=== PATIENT | male | born 1940 | race Caucasian/White ===

== ENCOUNTER 2022-05-26 18:12 | Observation (INO) | payer MEDICARE ==
[~2022-05-26] VITALS: Ht 172.7 cm; Wt 75.0 kg
[~2022-05-26 18:12] MED LIST: ASPIRIN EC81 MG PO; ATENOLOL-CHLOR1 EAC1 PO; COMBIVENT RESPIM4 GM INH; DOXYCYCLINE HY100 MG PO; GLIPIZIDE ER2.5 MG PO; GLIPIZIDE5 MG PO; IPRAT-ALBUT 0.5-3 ML INH; JANUMET 50-1,01 EACH PO; LANTUS SOL100 UNIT/1 SUB-Q; LISINOPRIL20 MG PO; METFORMIN HCL1000 MG PO; PRAVASTATIN SOD20 MG PO; PREDNISONE20 MG PO; PRIMATENE MIS11.7 GM INH; SPIRIVA18 MCG INH; TAMSULOSIN HCL0.4 MG PO
--- NOTE | 2022-05-26 21:15 | NUR ---
PT BROUGHT TO ROOM VIA STRETCHER BY FRANCESCA SANDERS. BEDSIDE REPORT RECEIVED FROM FRANCESCA SANDERS. PT AMBULATES FROM STRETCHER TO RESTROOM AND THEN TO BED WITH STEADY GAIT. PT BACK IN BED AND 2L O2 NC PLACED. PTs O2 SATS AT 84% ON 2L NC. INCREASED O2 SATS TO 4L NC. PTs O2 SATS INCREASE TO 94% AND MAINTAIN. TITRATED PT BACK DOWN TO 2L NC AND PTs O2 SATS CONTINUE TO MAINTAIN AT 94%. VITALS AND WEIGHT COMPLETE. TELE PLACED. 2142 ASSESSMENT COMPLETE. PT DENIES PAIN AT THIS TIME. LUNG SOUNDS EXPIRATROY WHEEZE THROUGHOUT ALL LOBES. DIMINISHED IN RLL AND LLL. BOWEL TONES ACTIVE. IV FLUSHES WNL. DAUGHTER IN ROOM. PT DENIES ANY NEEDS AT THIS TIME. CALL LIGHT IN REACH. PT EDUCATED SET ILLUSTRATOR LIGHT USE. PT VERBALIZES UNDERSTANDING. URINAL PROVIDED. EDUCATED PT ON SAFETY AND TO CALL IF PT NEEDS TO GET UP TO USE RESTROOM. PT VERBALIZES UNDERSTANDING. FRANCESCA SANTOYO IN ROOM.
[2022-05-26 21:22] VITALS: BP 131/86
--- NOTE | 2022-05-26 22:10 | NUR ---
IN TO ADMINISTER MEDICATION, SEE MAR. PT TOLERATES SUB-Q INJECTION WELL. RAN RN IN ROOM. IV ABX NOT YET IN PIXYS. BED ALARM ON. PT DENIES ANY OTHER NEEDS AT THIS TIME. CALL LIGHT IN REACH. PT VERBALIZES UNDERSTANDING CALL LIGHT USE AND USES TEACH BACK.
--- NOTE | 2022-05-26 22:49 | NUR ---
IN TO START IV ABX, SEE MAR. IV ABX STARTED. PT DENIES TOILETING NEEDS AT THIS TIME. URINAL PLACED AT BEDSIDE. PT DENIES ANY OTHER NEEDS AT THIS TIME. CALL LIGHT IN REACH. BED ALARM ON.
--- NOTE | 2022-05-26 23:50 | NUR ---
PT CALLED, THEN THE BED ALARM WENT OFF. PT NEEDED TO USE URINAL. STOOD AT BEDSIDE, USED URINAL THEN BACK TO BED. BED ALARM PLACED.
--- NOTE | 2022-05-26 23:57 | NUR ---
IN TO ANSWER CALL LIGHT. IV ABX COMPLETE. PT SL AT THIS TIME. PT DENIES TOILETING NEEDS AT THIS TIME. PT DENIES ANY OTHER NEEDS AT THIS TIME. CALL LIGHT IN REACH. BED ALARM ON.
--- NOTE | 2022-05-27 00:28 | NUR ---
IN TO ANSWER BED ALARM. PT SITTING ON EDGE OF BED ATTEMPTING TO USE URINAL. VOID NOTED. PT LAYS BACK IN BED. PT DENIES NEEDS AT THIS TIME. CALL LIGHT IN REACH. EDUCATED PT TO USE CALL LIGHT IF PT NEEDS TO GET UP. PT VERBALIZES UNERSTANDING. BED ALARM ON.
--- NOTE | 2022-05-27 01:15 | NUR ---
IN TO ROUND ON PT. NC OFF PT. PT RESTING IN BED WITH EYES CLOSED RR EVEN AND UNLABORED. PT AWAKENS AND RESPONDS WHEN ADDRESSED. NC PLACED BACK ON PT. O2 SATS 89% ON RA. ONCE NC PLACED ON PT O2 SATS INCREASE TO 90% ON 2L NC. PT DENIES ANY NEEDS AT THIS TIME. CALL LIGHT IN REACH. BED ALARM ON.
[2022-05-27 01:57] VITALS: BP 128/68
--- NOTE | 2022-05-27 02:03 | NUR ---
IN TO ROUND ON PT. PT RESTING IN BED WITH EYES CLOSED. RR EVEN AND UNLABORED. VITALS AND I&Os COMPLETE. ASSESSMENT COMPLETE. LUNG SOUNDS EXPIRATORY WHEEZE THROUGHOUT ALL LOBES. COARS IN RLL AND LLL. RHONCHI IN RUL. BOWEL TONES ACTIVE. PT DENIES PAIN AT THIS TIME. PT DENIES TOILETING NEEDS AT THIS TIME. PT DENIES ANY OTHER NEEDS AT THIS TIME. CALL LIGHT IN REACH. BED ALARM ON.
--- NOTE | 2022-05-27 03:35 | NUR ---
IN TO ROUND ON PT. PT AWAKE IN BED. NC NOTED TO BE OFF PT. O2 SATS 89% ON RA. PLACED 2L NC ON PT AND O2 SATS INCREASE AND MAINTAIN AT 91%. URINAL EMPTIED. PT REQUESTING ATTENDS. PTs PANTS NOTED TO BED SOILED WITH URINE. ATTENDS PROVIDED. PT REQUESTING WATER, WATER PROVIDED. PT DENIES ANY OTHER NEEDS AT THIS TIME. CALL LIGHT IN REACH. BED ALARM ON.
[2022-05-27 04:57] VITALS: BP 122/68
--- NOTE | 2022-05-27 05:00 | NUR ---
IN BED ALARM ALARMING. PT SITTING ON EDGE OF BED USING URINAL. URINAL EMPTIED. VITALS AND I&Os COMPLETE. PT DENIES PAIN AT THIS TIME. PT DENIES FEELING SOB. PT DENIES ANY OTHER NEEDS AT THIS TIME. CALL LIGHT IN REACH. BED ALARM ON.
--- NOTE | 2022-05-27 07:25 | EKG ---
[facility] [address] [place] [address] Signed Sinus rhythm with occasional premature ventricular complexes Otherwise normal ECG When compared with ECG of 04-JAN-2022 09:38, premature ventricular complexes are now present Confirmed by KENYETTA LO MD ([id number]) on 05/27/2022 7:25:00 AM Electronically Signed By: KENYETTA LO MD 05/27/22 0725 PATIENT NAME: JULES MILLS PAIGE Electrocardiogram DATE OF : 44 PHYSICIAN: KENYETTA LO MD REPORT #: [id number] REPORT IS CONFIDENTIAL AND NOT TO BE RELEASED WITHOUT AUTHORIZATION
--- NOTE | 2022-05-27 08:25 | NUR ---
PT ASSESSMENT AND MEDICATION ADMINISTRATION COMPLETED. PT IS A/O, RESPIRATIONS EVEN AND REGULAR. WHEEZES THROUGHOUT. CALL LIGHT WITHIN REACH.
[2022-05-27 09:52] VITALS: BP 115/60
--- NOTE | 2022-05-27 11:16 | NUR ---
ROUNDED ON PT. PT APPEARS TO BE SLEEPING COMFORTABLY. RESPIRATIONS EVEN AND REGULAR. 2L NC IN PLACE. CALL LIGHT WITHIN REACH.
--- NOTE | 2022-05-27 11:46 | NUR ---
Visited with Kentrell. He lives with his daughter and grandchild, and she lives upstairs. Pt states there is 14 steps for meals and ice water, and claims that he becomes SOB with the stairs. Daughter provides groceries and cooking. Kentrell pays the bills. He is retired from [employer], and had a pension and SS, and states he has no financial issues. He has a nebulizer but does not use it regularly. Pt may need o2 on discharge, and has used [facility] in the past. He believes Dr. Camargo has started with process in getting O2 ordered for him. Called [facility] and O2 has been ordered but will need orders and O2 qualifier on discharge.
--- NOTE | 2022-05-27 12:08 | NUR ---
TO PT ROOM FOR MEDICATION ADMINISTRATION. PT IS A/O, RESPIRATIONS EVEN AND REGULAR. REMAINS ON 2L NC. CALL LIGHT WITHIN REACH.
[2022-05-27] MEDS ORDERED: PREDNISONE10 MG PO (13:10)
[2022-05-27] MEDS ORDERED: AZITHROMYCIN250 MG PO (13:12)
[2022-05-27 13:26] VITALS: BP 118/59
[2022-05-27] MEDS ORDERED: ZINC50 MG PO (14:52)
[2022-05-27] MEDS ORDERED: VITAMIN D325 MCG PO (14:56)
--- NOTE | 2022-05-27 14:57 | NUR ---
MED REC COMPLETE
--- NOTE | 2022-05-27 15:35 | NUR ---
PT ASSESSMENT COMPLETED. PT IS A/O, REMAINS ON 2L NC. SPO2 95%. PT IS USING IS. CALL LIGHT WITHIN REACH.
--- NOTE | 2022-05-27 16:57 | NUR ---
MEDICATION ADMINISTRATION COMPLETED. ASSISTED PT TO STAND AT BEDSIDE TO USE URINAL. PT REMAINS ON 2 L NC. CALL LIGHT WITHIN REACH.
[2022-05-27 17:58] VITALS: BP 1120/56; BP 120/56
--- NOTE | 2022-05-27 18:08 | NUR ---
VS AND I/O COMPLETED. ASSISTED PT BACK TO BED FROM CHAIR. FAMILY AT BEDSIDE. CALL LIGHT WITHIN REACH.
--- NOTE | 2022-05-27 19:05 | NUR ---
REPORT RECEIVED FROM FRANCESCA MARIN. PT LAYING IN BED WATCHING TV. PT DENIES ANY NEEDS AT THIS TIME. CALL LIGHT IN REACH. BED ALARM ON.
--- NOTE | 2022-05-27 19:57 | NUR ---
IN TO ANSWER CALL LIGHT. PT REQUESTING TO STAND TO USE URINAL. PT STANDS AT BEDSIDE AND VOIDS IN URINAL. URINAL EMPTIED. PT DENIES ANY OTHER NEEDS AT THIS TIME. CALL LIGHT IN REACH.
[2022-05-27 20:44] VITALS: BP 134/64
--- NOTE | 2022-05-27 20:54 | NUR ---
IN TO ADMINISTER MEDICATION, SEE MAR. PT TAKES PO MEDICATION WITH NO ISSUES. VITALS AND I&Os COMPLETE. WATER PROVIDED. ASSESSMENT COMPLETE. PT DENIES ANY PAIN AT THIS TIME. LUNG SOUNDS EXPIRATORY WHEEZE THROUGHOUT ALL LOBES. COARSE IN RLL AND LLL. BOWEL TONES ACTIVE. PT DENIES NUMBNESS OR TINGLING IN HANDS AND FEET. PT DENIES ANY OTHER NEEDS AT THIS TIME. CALL LIGHT IN REACH. IV ABX INFUSING WNL.
--- NOTE | 2022-05-27 21:51 | NUR ---
IN TO ROUND ON PT. PT REQUESTING PRN MELATONIN. PT ALSO REQUESTING TOILETING. PT STANDS AT BEDSIDE AND USES URINAL TO VOID. VOID NOTED. PRN MELATONIN ADMINISTERED, SEE MAR. PT TAKES PO MEDICATION WITH NO ISSUES. IV ABX INFUSING WNL. PT LAYING IN BED WATCHING TV. RR EVEN AND UNLABORED. PT DENIES ANY OTHER NEEDS AT THIS TIME. CALL LIGHT IN REACH.
--- NOTE | 2022-05-27 23:12 | NUR ---
IN TO ROUND ON PT. PT LAYING IN BED WATCHING TV. PT STATES "WHILE YOU ARE HERE I MIGHT WELL GET UP AND GO TO THE BATHROOM." PT AMBULATES TO RESTROOM WITH STEADY GAIT AND BACK TO BED. PT REQUESTING ICE CREAM. SUGAR FREE ICE CREAM PROVIDED. PT DENIES ANY OTHER NEEDS AT THIS TIME. CALL LIGHT IN REACH.
--- NOTE | 2022-05-28 00:05 | NUR ---
IN TO ROUND ON PT. PT RESTING IN BED WITH EYES CLOSED. RR EVEN AND UNLABORED. NO NEEDS IDENTIFIED AT THIS TIME. CALL LIGHT IN REACH.
--- NOTE | 2022-05-28 02:04 | NUR ---
SPOT CHECK PTs O2 SATS. O2 SATS AT 91% ON 2L NC WHILE PT RESTING IN BED WITH EYES CLOSED. RR EVEN AND UNLABORED.
[2022-05-28 05:09] VITALS: BP 139/68
--- NOTE | 2022-05-28 05:12 | NUR ---
IN TO ROUND ON PT. PT RESTING IN BED WITH EYES CLOSED. RR EVEN AND UNLABORED. PT AWAKENS AND RESPONDS WHEN ADDRESSED. VITALS AND I&Os COMPLETE. ASSESSMENT COMPLETE. LUNG SOUNDS COARSE AND EXPIRATORY WHEEZING THROUGHOUT. BOWEL TONES ACTIVE. PT DENIES PAIN AT THIS TIME. PT REQUESTING TOILETING. PT AMBULATES TO RESTROOM FROM BED WITH STEADY GAIT AND BACK TO BED. WATER PROVIDED. PT DENIES ANY OTHER NEEDS AT THIS TIME. CALL LIGHT IN REACH.
--- NOTE | 2022-05-28 07:49 | NUR ---
RECIEVED SHIFT REPORT. PT RESTING IN BED, EYES CLOSED, BREATHING EVEN AND UNLABORED. CALL LIGHT IN REACH.
--- NOTE | 2022-05-28 09:01 | NUR ---
RN IN ROOM TO ADMINISTER INSULIN FOR PRIMARY RN - RT IN ROOM PERFORMING HOME 02 TRIAL.
--- NOTE | 2022-05-28 09:29 | NUR ---
Spoke with pt and he plans on dc to home today. Unclear when he will have a ride. Will call [facility] and confirm time they will deliver 02 to pts. home. Per pt, no one will be home.
--- NOTE | 2022-05-28 09:30 | NUR ---
Faxed face sheet, H&P, progress notes, RX for 02. Called and spoke with Sheree and updated they have had this pt in the past. She was able to look up info. She will call back with a time for 02 delivery.
[2022-05-28 09:34] VITALS: BP 109/63
--- NOTE | 2022-05-28 09:51 | NUR ---
MORNING ASSESSMENT COMPLETE. DENIES PAIN. INSP./EXP WHEEZE IN RUL & LLL, EXP WHEEZE IN [place] & LLL, COURSE IN ALL LOBES. COUGH PRESENT WITH THICK SMALL AMOUNTS OF YELLOW SPUTUM. IN RECLINER, DENIES FURTHER NEEDS. CALL LIGHT IN REACH
--- NOTE | 2022-05-28 10:02 | NUR ---
Pt was discussed in 9:30 meeting. Will dc today. Called [facility] and they can deliver 02 between 3 and 4 pm. Let them know we will send the pt home with a large tank around 1 pm. Returned and updated Kentrell. He will call and schedule a ride for around 1 pm. Nurse updated.
--- NOTE | 2022-05-28 10:11 | NUR ---
Notified by CM, pt's daughter will be home in the afternoon to accept 02 and his ride will be here at 2 pm.
--- NOTE | 2022-05-28 12:21 | NUR ---
PT SITTING ON SIDE OF BED EATING. DENIES PAIN OR ANY COMPLAINTS AT THIS TIME. CALL LIGHT IN REACH
== END 2022-05-28 13:50 | disposition home or self-care (01) ==
LOC: ED 18:12 → MS 18:14
PROVIDERS: ADMIT Internal Medicine; ATTEND Internal Medicine
DX: J44.1 Chronic obstructive pulmonary disease with (acute) exacerbation (principal); J96.01 Acute respiratory failure with hypoxia; E11.9 Type 2 diabetes mellitus without complications; I10 Essential (primary) hypertension; Z99.81 Dependence on supplemental oxygen; Z87.891 Personal history of nicotine dependence; Z20.822 Contact with and (suspected) exposure to COVID-19
CPT/HCPCS: 36415; 71045; 80048; 80053; 83735; 83880; 84484; 85025; 87502; 93005; 93010; 94640; 94667; 94668; 94760; 94761; 96365; 96372; A9270; C9803; G0378; J0456; J1650; J1815; J2930; J7060; J7512; U0003

== ENCOUNTER 2023-06-09 22:08 | Inpatient (IN) | payer MEDICARE ==
[~2023-06-09] VITALS: Ht 172.7 cm; Wt 78.8 kg
[~2023-06-09 22:08] MED LIST changes: +AZITHROMYCIN250 MG PO; +PREDNISONE10 MG PO; +VITAMIN D325 MCG PO; +ZINC50 MG PO
[2023-06-09] MEDS ORDERED: ALBUTEROL/IPRATROPIUM 3 ML NEB INH PRN (22:15)
[2023-06-09 22:25] LABS: BASOPHILS 0.4 % (0-2); EOSINOPHILS 1.2 % (0-6); HEMATOCRIT 44.9 % (35.0-50.0); HEMOGLOBIN 14.8 g/dL (12.0-18.0); LYMPHOCYTES 7.4 % (24-44); MCHC 32.9 g/dl (30-36); MCV 91.3 fl (81-99); MONOCYTES 3.8 % (0-12); NEUTROPHILS 87.2 % (39-80); PLATELET COUNT 213 K/uL (140-440); RBC 4.92 M/ul (4.3-5.7); RDW 15.2 (10.5-15.0)
[2023-06-09] MEDS ORDERED: CEFTRIAXONE/SODIUM CHLORIDE 2 GM/100 ML PIGGYBACK IV ONE (22:45)
[2023-06-09] MEDS ORDERED: ALBUTEROL/IPRATROPIUM 3 ML NEB INH ONE ×2 (22:45→23:45)
[2023-06-09] MEDS ORDERED: SODIUM CHLORIDE 0.9% 1,000 ML IV PRN (22:45)
[2023-06-09] MEDS ORDERED: methylPREDNISolone SOD SUCC 125 MG/2 ML VIAL IV ONE (22:45)
[2023-06-09 22:53] LABS: ALBUMIN 3.8 g/dL (3.4-5.0); ALBUMIN/GLOBULIN RATIO 0.97 (1.1-2.4); ANION GAP 15.1 (7-21); BILIRUBIN, TOTAL 0.6 ng/dL (0.2-1.0); BUN/CREATININE RATIO 20.96 (6.0-28.6); CALCIUM 8.6 mg/dL (8.5-10.1); CREATININE, SERUM 1.24 mg/dL (0.70-1.30); POTASSIUM 4.1 mmol/L (3.5-5.1); PROTEIN, TOTAL 7.7 g/dL (6.4-8.2)
[2023-06-09 23:23] LABS: LACTIC ACID, BLOOD 1.4 mmol/L (0.4-2.0)
[2023-06-09 23:39] LABS: BILIRUBIN, URINE NEGATIVE (negative); BLOOD/HGB, URINE SMALL (Negative); KETONE, URINE TRACE (Negative); LEUK ESTERASE, URINE NEGATIVE (negative); NITRITE, URINE NEGATIVE (negative); PH, URINE 6.5 (5-7)
[2023-06-09 23:44] LABS: EPITHELIAL CELLS, URINE SQUAMOUS 1+ /lpf (0-1+)
[2023-06-09 23:45] LABS: BACTERIA, URINE RARE /hpf (negative); CASTS, URINE HYALINE 1+ \\lpf; CRYSTALS, URINE NONE SEEN (0-1+); REFLEX CULTURE, URINE No (No)
[2023-06-09] MEDS ORDERED: ondansetron HCL 4 MG/2 ML VIAL IV ONE (23:45)
[2023-06-09] MEDS ORDERED: ALBUTEROL SULFATE 0.5% 2.5 MG/0.5 ML VIAL INH ONE (23:45)
[2023-06-09] MEDS ORDERED: MORPHINE SULFATE 4 MG/ML VIAL IV ONE (23:45)
[2023-06-10] VITALS (17 sets, daily range): BP systolic 93–154; BP diastolic 56–89
[2023-06-10] MEDS ORDERED: MAGNESIUM SULFATE 50 ML IV ONE (00:22)
[2023-06-10 00:24] LABS: INFLUENZA B NAA NEGATIVE (NEGATIVE); RESPIRATORY SYNCYTIAL VIR NAA NEGATIVE (NEGATIVE)
[2023-06-10 00:27] LABS: BASE EXCESS, BLOOD GAS -1.2 mmol/L (-2-2); HCO3, BLOOD GAS 30.4 mmol/L (22-26); O2 SATURATION, BLOOD GAS 94.9 % (95.0-100.0); OXYGEN RECEIVED, BLOOD GAS 60%; PCO2, BLOOD GAS 86.9 mmHg (35-45); PH, BLOOD GAS 7.15 (7.35-7.45); PO2, BLOOD GAS 89 mmHg (80-100); TOTAL CO2, BLOOD GAS 33.1
[2023-06-10] MEDS ORDERED: MAGNESIUM SULFATE 2 GM/50 ML BAG IV ONE (00:30)
[2023-06-10] MEDS ORDERED: LACTATED RINGER'S 1,000 ML IV ONE (01:00)
[2023-06-10 01:41] LABS: BASE EXCESS, BLOOD GAS 0.5 mmol/L (-2-2); HCO3, BLOOD GAS 30.1 mmol/L (22-26); O2 SATURATION, BLOOD GAS 95.1 % (95.0-100.0); OXYGEN RECEIVED, BLOOD GAS 45%; PCO2, BLOOD GAS 72.2 mmHg (35-45); PH, BLOOD GAS 7.23 (7.35-7.45); PO2, BLOOD GAS 82 mmHg (80-100); TOTAL CO2, BLOOD GAS 32.3
[2023-06-10] MEDS ORDERED: LACTATED RINGER'S 1,000 ML IV SCH (02:00)
[2023-06-10] MEDS ORDERED: ondansetron HCL 4 MG/2 ML VIAL IV PRN ×2 (02:00→07:00)
[2023-06-10] MEDS ORDERED: methylPREDNISolone SOD SUCC 125 MG/2 ML VIAL IV SCH (02:00)
[2023-06-10] MEDS ORDERED: ALBUTEROL/IPRATROPIUM 3 ML NEB INH PRN (02:00)
[2023-06-10] MEDS ORDERED: MORPHINE SULFATE 4 MG/ML VIAL IV PRN (02:15)
--- NOTE | 2023-06-10 03:31 | NUR ---
PATIENT ARRIVED TO THE UNIT VIA STRETCHER. ABLE TO ASSIST WITH TRANSFER TO BED WITH SOME ASSIST. PATIENT REMIANS ON BIPAP; 03/10 WITH 45% Fi02. RR 22-24. PATIENT IS DROWSY, RECENTLY RECEIVED PRN MORPHINE FOR SOB. PATIENT LUNG SOUNDS ARE DIMINISHED AND EXP WHEEZE THROUGHOUT. HR 100, SINUS TACH. ADEQUATE BP AND ORAL TEMP WNL. SEE VS. IV SITES WNL X2. FLUID BOLUS FINISHED. SKIN GROSSLY INTACT. ABD DRAW SITES COVERED WITH BANDAIDS. FAMILY AT BEDSIDE TO PROVIDE SOME HISTORY AND THEN HAVE GONE HOME FOR THE MORNING. PATIENT RESTING IN BED, TOLERATING BIPAP. CALL LIGHT IN HAND. BED ALARM ACTIVE.
--- NOTE | 2023-06-10 04:03 | NUR ---
ASSISTED PATIENT TO USE URNAL IN BED. PATIENT FOLLOWS DIRECTIONS EASILY. ABLE TO VOID WITH ASSISTANCE. PATIENT DENIED OTHER NEEDS. TOLERATING BIPAP WELL. VS STABLE.
--- NOTE | 2023-06-10 06:15 | NUR ---
PATIENT RESTLESS IN BED. ASSISTED TO USE URNAL. PATIENT CONTINUES TO BE RESTLESS. ASSISTED TO SIT AT EDGE OF BED. PATIENT REPORTS FEELING SOB AND ANXIETY WITH BIPAP. PRN MORPHINE PROVIDED. RT CALLED FOR NEB. POST NEB PATIENT RETURNED TO BED. TOLERATING BIPAP AT THIS TIME. CALL LIGHT IN REACH. BED ALARM ACTIVE.
[2023-06-10] MEDS ORDERED: ACETAMINOPHEN 500 MG TAB PO PRN (07:00)
[2023-06-10] MEDS ORDERED: BENZONATATE 100 MG CAP PO PRN (07:00)
[2023-06-10] MEDS ORDERED: MAGNESIUM HYDROXIDE 30 ML UDC PO PRN (07:00)
[2023-06-10 07:14] LABS: BASOPHILS 0.2 % (0-2); HEMOGLOBIN 13.1 g/dL (12.0-18.0); LYMPHOCYTES 2.9 % (24-44); MCH 30.1 (27-36); MCHC 32.8 g/dl (30-36); MCV 91.8 fl (81-99); NEUTROPHILS 95.9 % (39-80); PLATELET COUNT 176 K/uL (140-440); RBC 4.36 M/ul (4.3-5.7)
[2023-06-10 07:23] LABS: ANION GAP 11.6 (7-21); BUN/CREATININE RATIO 23.07 (6.0-28.6); CREATININE, SERUM 1.04 mg/dL (0.70-1.30); POTASSIUM 4.6 mmol/L (3.5-5.1)
[2023-06-10 07:37] LABS: BASE EXCESS, BLOOD GAS 1.1 mmol/L (-2-2); HCO3, BLOOD GAS 29.4 mmol/L (22-26); O2 SATURATION, BLOOD GAS 99.5 % (95.0-100.0); PCO2, BLOOD GAS 62.5 mmHg (35-45); PH, BLOOD GAS 7.28 (7.35-7.45); PO2, BLOOD GAS 119 mmHg (80-100); TOTAL CO2, BLOOD GAS 31.3
[2023-06-10] MEDS ORDERED: ALBUTEROL/IPRATROPIUM 3 ML NEB INH SCH (08:00)
--- NOTE | 2023-06-10 08:15 | NUR ---
PT BED ALARM OFF - UP TO VOID WITH RN, SOB WITH EXERTION - 150 ML AND INC ON FLOOR - REMOVED BIPAP - 8LNC FOR MEAL AT SIDE OF BED - ACCUCHECK 271 [place] NOTIFIED. BED ALARM ON.
[2023-06-10] MEDS ORDERED: DEXTROSE 50% 50 ML SYR IV PRN ×4 (08:45→18:00)
[2023-06-10] MEDS ORDERED: DEXTROSE 5% 1,000 ML IV PRN ×2 (08:45→18:00)
[2023-06-10] MEDS ORDERED: GLUCAGON,HUMAN RECOMBINANT 1 MG/ML VIAL SUB-Q PRN ×2 (08:45→18:00)
[2023-06-10] MEDS ORDERED: IBLOOD GLUCOSE TEST STRIP 1 EA TEST XX PRN ×2 (08:45→18:00)
[2023-06-10] MEDS ORDERED: PANTOPRAZOLE SODIUM 40 MG TABEC PO SCH (09:00)
[2023-06-10] MEDS ORDERED: ENOXAPARIN SODIUM 40 MG/0.4 ML SYR SUB-Q SCH (09:00)
--- NOTE | 2023-06-10 09:09 | NUR ---
In room, pt req sip of water. water provided. pt swallowed complete. BIPAP on pt. PT resting in bed. call light within reach
--- NOTE | 2023-06-10 09:31 | NUR ---
PATIENT JULES IS NOTED TO BE ALERT TO SELF, FOUND TRYING TO GET OOB, BED ALARM ON. BIPAP IN USE 20/8 RR 20 FOI2 45%. INSPIRATORY/ EXPIRATORY WHEEZES APPRECIATED, LR GTT AT 125
[2023-06-10] MEDS ORDERED: TRELEGY ELLIPT1 EACH INH (09:58)
--- NOTE | 2023-06-10 09:58 | NUR ---
Patient resting with eyes closed and currently on BiPAP. Allowed to rest at this time. Will return to complete assessment at a later time.
--- NOTE | 2023-06-10 10:00 | NUR ---
Pt provided sips of water. Pt BIPAP back on. No needs, call light within reach.
[2023-06-10] MEDS ORDERED: VENTOLIN HFA18 GM INH (10:02)
--- NOTE | 2023-06-10 11:09 | NUR ---
VISITED DURING SPIRITUAL CARE ROUNDS. PT EXPRESSED FRUSTRATION WITH SITUATION AND UNDERSTANDING OF NECESSITY. I ENCOURAGED FOCUS ON PRESENT; PROVIDED SUPPORTIVE PRESENCE; OFFERED HOSPITALITY; PROVIDED PRAYER. PT EXPRESSED APPRECIATION, ACCEPTANCE.
[2023-06-10] MEDS ORDERED: IBLOOD GLUCOSE TEST STRIP 1 EA TEST VI SCH ×2 (12:00→18:00)
[2023-06-10] MEDS ORDERED: PHARMACY RENAL DOSE ADJUSTMENT 1 DOSE MISC PO SCH (12:00)
[2023-06-10 12:02] LABS: BASE EXCESS, BLOOD GAS 2.4 mmol/L (-2-2); HCO3, BLOOD GAS 30.1 mmol/L (22-26); O2 SATURATION, BLOOD GAS 98.7 % (95.0-100.0); PCO2, BLOOD GAS 58.6 mmHg (35-45); PH, BLOOD GAS 7.32 (7.35-7.45); PO2, BLOOD GAS 130 mmHg (80-100); TOTAL CO2, BLOOD GAS 31.9
--- NOTE | 2023-06-10 12:12 | NUR ---
Pt sat up to eat lunch. Pt on NC now per RN. Pt provided ensure. Pt assisted w void in urinal. Pat has no further needs. call light within reach
[2023-06-10] MEDS ORDERED: ASPIRIN 81 MG TABEC PO SCH (13:17)
[2023-06-10] MEDS ORDERED: lisinopriL 20 MG TAB PO SCH (13:20)
[2023-06-10] MEDS ORDERED: TAMSULOSIN HCL 0.4 MG CAP PO SCH (13:21)
[2023-06-10] MEDS ORDERED: CHLORTHALIDONE 25 MG TAB PO SCH (13:30)
[2023-06-10] MEDS ORDERED: BUDESONIDE 0.5 MG/2 ML VIAL INH SCH (13:30)
[2023-06-10] MEDS ORDERED: atenoloL 50 MG TAB PO SCH (13:30)
[2023-06-10] MEDS ORDERED: DOXYCYCLINE HYCLATE 100 MG in DEXTROSE 5% 100 ML IV SCH (13:35)
[2023-06-10] MEDS ORDERED: CEFTRIAXONE/SODIUM CHLORIDE 1 GM/100 ML PIGGYBACK IV SCH (13:45)
[2023-06-10] MEDS ORDERED: DOXYCYCLINE HYCLATE IV SCH (14:00)
[2023-06-10] MEDS ORDERED: methylPREDNISolone SOD SUCC 40 MG/ML VIAL IV SCH (14:00)
[2023-06-10] MEDS ORDERED: DEXTROSE 5% IV SCH (14:00)
--- NOTE | 2023-06-10 14:20 | NUR ---
MED REC COMPLETE
[2023-06-10] MEDS ORDERED: ALBUTEROL SULFATE 0.083% 3 ML VIAL ONE (14:50)
[2023-06-10] MEDS ORDERED: LORazepam 2 MG/ML VIAL IV ONE (15:15)
[2023-06-10 15:17] LABS: BASE EXCESS, BLOOD GAS 3.3 mmol/L (-2-2); HCO3, BLOOD GAS 30.4 mmol/L (22-26); O2 SATURATION, BLOOD GAS 98.6 % (95.0-100.0); PCO2, BLOOD GAS 54.7 mmHg (35-45); PH, BLOOD GAS 7.35 (7.35-7.45); PO2, BLOOD GAS 91 mmHg (80-100); TOTAL CO2, BLOOD GAS 32.1
[2023-06-10] MEDS ORDERED: LORazepam 1 MG TAB PO PRN (15:30)
--- NOTE | 2023-06-10 15:37 | EKG ---
[facility] [address] [place] [address] Signed Wide QRS rhythm Left ventricular hypertrophy with QRS widening and repolarization abnormality ( Pelon product ) Abnormal ECG When compared with ECG of 26-MAY-2022 19:05, Wide QRS rhythm has replaced Sinus rhythm Vent. rate has increased BY 40 BPM Confirmed by Dennis Ge ([id number]) on 06/10/2023 3:37:04 PM Electronically Signed By: DENNIS GE MD 06/10/23 1537 PATIENT NAME: JULES MILLS Electrocardiogram DATE OF : 44 PHYSICIAN: DENNIS GE MD REPORT #: [id number] REPORT IS CONFIDENTIAL AND NOT TO BE RELEASED WITHOUT AUTHORIZATION
--- NOTE | 2023-06-10 15:37 | NUR ---
PATIENT JULES GIVEN PRN ATIVAN FOR SOB/ANXIETY. HE APPEARS MUCH MORE COMFORTABLE, NC 5L, RESTING WITH EYES CLOSED. MD OCHOA STATES THAT VERBAL ORDER OF ARTERIAL LINE CAN BE DISCONTINUED. REPEAT ABG IS TRENDING IN THE RIGHT DIRECTION
--- NOTE | 2023-06-10 15:37 | EKG ---
[facility] [address] [place] [address] Signed Sinus tachycardia with premature atrial complexes Left bundle branch block Abnormal ECG No previous ECGs available Confirmed by Dennis Ge ([id number]) on 06/10/2023 3:37:30 PM Electronically Signed By: DENNIS GE MD 06/10/23 1537 PATIENT NAME: JULES MILLS Electrocardiogram DATE OF : 44 PHYSICIAN: DENNIS GE MD REPORT #: [id number] REPORT IS CONFIDENTIAL AND NOT TO BE RELEASED WITHOUT AUTHORIZATION
[2023-06-10] MEDS ORDERED: INSULIN LISPRO 100 UNIT/ML ML SUB-Q SCH (18:15)
--- NOTE | 2023-06-10 18:16 | NUR ---
PATIENT JULES IS REQUIRING 5LNC AND IS ABLE TO ENJOY HIS DINNER WHILE WATCHING TV. 7UNITS ON HUMALOG FOR A CBG OF 313. ALERT AND ORIENTED X2 OR 3, MOVES ALL EXTREMITIES, WEAKENESS NOTED IN ALL EXTREMITIES, BILATERAL [place] TRIBE, GLASSES AT BEDSIDE, DENTURES WITH PATIENT, NO PAIN ENDORSED, ANXIETY NOTED AT TIMES, PRN [id number] 5LNC OR BIPAP 18/8 RR 30%FI02, INSPIRATORY AND EXPIRATORY WHEEZES, STRONG COUGH, ABLE TO CLEAR AIRWAY SR-ST, PAC AND PVC NOTED, NORMOTENSIVE, AFEBRILE, NO SHE A GI/- VOIDS IN URINAL, 60G C DIET, NORMOACTIVE BOWEL TONES BILATERAL PIV
[2023-06-10] MEDS ORDERED: ALBUTEROL SULFATE 0.5% 2.5 MG/0.5 ML VIAL INH PRN (18:30)
--- NOTE | 2023-06-10 19:54 | NUR ---
ROUNDING ON PATIENT, PATIENT RESTING IN BED, EYES CLOSED, WITH BIPAP MASK IN PLACE. PATIENT ALERT TO THIS RN VOICE AND ASSESSMENT, THEN CLOSED EYES AGAIN ASSESSMENT COMPLETE. NO NEW CONCERNS FROM SHIFT REPORT. Zoe VENTURA AT BEDSIDE FOR BREATHING TREATMENTS.
[2023-06-10] MEDS ORDERED: MELATONIN 3 MG TAB PO PRN (21:00)
[2023-06-10] MEDS ORDERED: INSULIN GLARGINE-YFGN 100 UNIT/ML ML SUB-Q SCH (21:00)
[2023-06-11] VITALS (10 sets, daily range): BP systolic 106–131; BP diastolic 51–63
--- NOTE | 2023-06-11 | NUR ---
PATIENT ASKED TO HAVE BREAK FROM BIPAP, PLACED TO N.C. 5L OXYGEN TOLERATING WELL. AUDREY Enriquez NOTIFIED.
--- NOTE | 2023-06-11 02:30 | NUR ---
PATIENT BACK ON BIPAP AFTER COUGH THAT PRODUCED SMALL AMOUNT OF SPUTUM. HE IS REATING BACK IN BED, EYES CLOSED, RESP RATE 23/MIN, ON MONITOR, V/S STABLE.
[2023-06-11 05:20] LABS: BASE EXCESS, BLOOD GAS 6.2 mmol/L (-2-2); HCO3, BLOOD GAS 32.4 mmol/L (22-26); O2 SATURATION, BLOOD GAS 98.8 % (95.0-100.0); PCO2, BLOOD GAS 52.7 mmHg (35-45); PO2, BLOOD GAS 92 mmHg (80-100); TOTAL CO2, BLOOD GAS 34.1
[2023-06-11 05:36] LABS: BASOPHILS 0.2 % (0-2); HEMATOCRIT 39.2 % (35.0-50.0); HEMOGLOBIN 12.8 g/dL (12.0-18.0); LYMPHOCYTES 6.2 % (24-44); MCH 30.2 (27-36); MCHC 32.8 g/dl (30-36); MCV 92.1 fl (81-99); MONOCYTES 5.3 % (0-12); NEUTROPHILS 88.3 % (39-80); PLATELET COUNT 188 K/uL (140-440); RBC 4.26 M/ul (4.3-5.7); RDW 15.1 (10.5-15.0)
[2023-06-11 05:45] LABS: ANION GAP 9.2 (7-21); BUN/CREATININE RATIO 27.45 (6.0-28.6); CALCIUM 8.5 mg/dL (8.5-10.1); CREATININE, SERUM 1.02 mg/dL (0.70-1.30); MAGNESIUM 2.2 mg/dL (1.8-2.4); POTASSIUM 4.2 mmol/L (3.5-5.1)
--- NOTE | 2023-06-11 08:00 | NUR ---
SBAR REPORT RECEIVED FROM FRANCESCA SOW. ALL EVENTS OF THE EVENING WERE DISCUSSED AND PLAN OF CARE REVIEWED. PATIENT IS NOTED TO BE ALERT AND ORIENTED X4, [place], FOLLOWING COMMANDS, ENDORSES COMFORT, ABLE TO EXPRESS NEEDS AND DESIRES. JULES WAS ABLE TO CONSUME BREAKFAST WITH MINIMAL AID. ROUNDED WITH MD OCHOA. PLAN IS TO TRANSFER TO THE MEDICAL SURGICAL FLOOR
--- NOTE | 2023-06-11 11:21 | NUR ---
SBAR REPORT DELIVERED TO FRANCESCA VANEGAS. PATIENT JULES WAS TRANSFERRED VIA WHEELCHAIR TO ROOM 113. 5L NC REQUIRED. VSS AND WDL. HEARING AIDS, EYE GLASSES, AND DENTURES WITH PATIENT. DAUGHTER MANUEL RECEIVED AN UPDATE AND ALSO ACCOMPANIED HER FATHER TO HIS NEW ROOM
--- NOTE | 2023-06-11 11:35 | NUR ---
New admit to the medical floor. Patient is awake, alert and oriented x4. Patient denies pain, vital signs stable. Patient is on 5L oxygen per nc, RR 24/min. Patient stood to void, gait a bit uneven. Patient's lungs are wheezy in upper lobes, sp02 100% at this time. Patient oriented to room and call light, cont sp02 monitor intact.
--- NOTE | 2023-06-11 17:30 | NUR ---
Patient sitting up eating dinner, alert and oriented x4. Patient denies shortness of breath at rest. Patient remains on 5L oxygen per nc, sp02 96% at this time. Pt denies needs at this time.
--- NOTE | 2023-06-11 20:43 | NUR ---
PT WAS UP IN CHAIR, USED URINAL, TOLERATED WELL, BUT SOB NOTED W EXERTION ON RETURN TO BED, TOLERATING LIQUIDS WELL, NO C/O N/V., BACK TO BED, SOB WITH EXERTION, RECEIVED A NEB TX FROM RT. BACK TO BED, O2 3LO2 CHRONIC. LUNGS DIM AT BSES, SOB WITH EXERTION, PLEASANT AND COOP. SL LW PATENT. NO C/O PAIN. CBG 279, RECEIVED 7 UNIT SS INSULIN
--- NOTE | 2023-06-11 22:23 | NUR ---
O2 off, BIPAP on his requests. Lungs with exp wheezing and dim at baes,denies sob at rest at this time. pleasant and coop. no c/o adverse reaction to IV abx
--- NOTE | 2023-06-11 22:55 | NUR ---
USING BIPAP, CPOX ON AT BEDSIDE, RESTING, QYES CLOSED, NO S/SX DISTRESS
--- NOTE | 2023-06-11 23:34 | NUR ---
RN CALLED TO ROOM, PT REQUESTING TO HAVE HIS BIPAP REMOVED, DONE PER REQUEST, PT PLACED ON 3L/NC, PT DRINKING WATER, WITHOUT OTHER REQUESTS.
--- NOTE | 2023-06-12 02:58 | NUR ---
RESTING EYES CLOSED, ON O2 5LNC, CPOX AT BEDSIDE SATS 96%. USES URINAL VOIDING QS
[2023-06-12 05:20] VITALS: BP 141/66
--- NOTE | 2023-06-12 05:31 | NUR ---
PT HAS SLEPT MOST OF THIS SHIFT, USED BIPAP FOR ABOUT 1HR , ON 3LNC CPOX ON AT BEDSIDE, SATS 100%, NO SOB AT REST. O2 TITRATED DOWN TO 2LNC, CPOX SATS 94-96%. TURNS SELF IN BED. NO SOB AT THIS TIME, PT WAS SOB W EXERTION EARLIER ON SHIFT WHEN TRANSFERRING FROM CHAIR TO BED. PT NEEDS TO BE TITRATED WITH UP IN O2 WHEN TRANSFERRING FROM BED TO CHAIR FOR COMFORT. SL LW PATENT. USED URINAL, VOIDING QS. TOLERATING LIQUIDS WELL, NO C/O N/V. PLEASANT AND COOPERATIVE
[2023-06-12 06:05] LABS: BASOPHILS 0.2 % (0-2); HEMATOCRIT 39.8 % (35.0-50.0); LYMPHOCYTES 7.4 % (24-44); MCH 30.1 (27-36); MCHC 32.7 g/dl (30-36); MCV 91.9 fl (81-99); MONOCYTES 4.3 % (0-12); NEUTROPHILS 88.1 % (39-80); PLATELET COUNT 194 K/uL (140-440); RBC 4.34 M/ul (4.3-5.7); RDW 15.3 (10.5-15.0)
[2023-06-12 06:14] LABS: ANION GAP 9.8 (7-21); BUN/CREATININE RATIO 31.57 (6.0-28.6); CALCIUM 8.4 mg/dL (8.5-10.1); CREATININE, SERUM 0.95 mg/dL (0.70-1.30); POTASSIUM 3.8 mmol/L (3.5-5.1)
--- NOTE | 2023-06-12 07:10 | NUR ---
Pt report received from FRANCESCA Brito. Pt is awake, alert and oriented, sitting up in the chair (he transferred there on his own prior to my entering his room). CPOX on and his sats are at 98% on 1LPM. Pt denies any pain, dyspnea, but he is a little short of breath after transferring. Inspiratory and expiratory wheezes heard in the ADAMA, expiratory wheezes throughout the rest of the lungs. Pt requests fresh iced water but otherwise denies any needs. Call light in reach. Board updated.
[2023-06-12] MEDS ORDERED: POLYETHYLENE GLYCOL 3350 1 PACKET PO SCH (09:00)
[2023-06-12] MEDS ORDERED: SENNOSIDES/DOCUSATE 1 EA TAB PO SCH (09:00)
[2023-06-12 09:53] VITALS: BP 133/53
--- NOTE | 2023-06-12 09:59 | NUR ---
PATIENT UP IN CHAIR. PT REQUESTED ANOTHER CUP OF COFFEE. VITALS AND I/O'S COMPLETED. PATIENT HAS NO OTHER REQUESTS AT THIS TIME. CALL LIGHT WITHIN REACH.
--- NOTE | 2023-06-12 11:02 | NUR ---
Respond to pt call light for c/o "something doesn't feel right" at the IV site. No leaking, no redness, no swelling noted. KCL stopped, IV flushed with 10ml NS, good blood return, no leaking, no swelling, no redness noted with flushing. Pt states "That feels better". Restarted KCL and advised pt to use call light if it starts to not feel right again and I will slow the rate of administration. Pt is wanting to get up and ambulate to help move his bowels.
--- NOTE | 2023-06-12 12:28 | NUR ---
Pt is awake, alert and oriented sitting in his chair, his daughter is visiting with him. Pt denies needs at this time. 7 units insulin administered LASQ. Call light in reach.
[2023-06-12 14:18] VITALS: BP 138/58
[2023-06-12] MEDS ORDERED: CEFDINIR300 MG PO (14:23)
[2023-06-12] MEDS ORDERED: DOXYCYCLINE HY100 MG PO (14:24)
[2023-06-12] MEDS ORDERED: PREDNISONE20 MG PO (14:26)
[2023-06-12] MEDS ORDERED: BENZONATATE100 MG PO (14:28)
[2023-06-12] MEDS ORDERED: EXPECTORANT200 MG PO (14:29)
[2023-06-12] MEDS ORDERED: VENTOLIN HFA18 GM INH (15:16)
== END 2023-06-12 15:45 | disposition home or self-care (01) | DRG 189 ==
LOC: ED 22:08 → CCU 22:09 → MS 06-11 11:20
PROVIDERS: Internal Medicine; ADMIT Family Medicine; ATTEND Family Medicine
PROC: 5A09357 Assistance with Respiratory Ventilation, Less than 24 Consecutive Hours, Continuous Positive Airway Pressure (ICD-10-PCS; principal; 2023-06-11)
PROC: 4A033R1 Measurement of Arterial Saturation, Peripheral, Percutaneous Approach (ICD-10-PCS; 2023-06-11)
DX: J96.21 Acute and chronic respiratory failure with hypoxia (principal); J44.1 Chronic obstructive pulmonary disease with (acute) exacerbation; E87.29 Other acidosis; J98.11 Atelectasis; I10 Essential (primary) hypertension; E11.9 Type 2 diabetes mellitus without complications; D72.829 Elevated white blood cell count, unspecified; Z79.4 Long term (current) use of insulin; Z90.89 Acquired absence of other organs; Z90.49 Acquired absence of other specified parts of digestive tract; Z88.0 Allergy status to penicillin; Z87.891 Personal history of nicotine dependence; Z96.642 Presence of left artificial hip joint; Z79.899 Other long term (current) drug therapy; Z79.84 Long term (current) use of oral hypoglycemic drugs; Z98.890 Other specified postprocedural states; Z99.81 Dependence on supplemental oxygen; Z79.51 Long term (current) use of inhaled steroids
CPT/HCPCS: 36415; 36600; 71045; 71046; 80048; 80053; 81001; 82803; 83605; 83735; 83880; 84484; 85025; 87502; 93005; 93010; 94640; 94644; 94660; 94762; A9270; J0696; J1650; J1815; J2060; J2270; J2405; J2920; J2930; J3475; J7030; J7121; U0002